=== PATIENT | female | born 1985 | race Two or more races ===

== ENCOUNTER 2020-10-23 14:45 | Inpatient (IN) | payer BC ==
[2020-11-05] MEDS ORDERED: PRENATA CHEWAB1 EACH PO (09:31)
== END 2020-11-07 13:33 | disposition home or self-care (01) | DRG 807 ==
LOC: LDR 11-05 08:32 → SURG-SUITE 11-05 19:22 → LDR 11-12 14:45
PROVIDERS: ADMIT Obstetrics & Gynecology; ATTEND Obstetrics & Gynecology
PROC: 10E0XZZ Delivery of Products of Conception, External Approach (ICD-10-PCS; principal; 2020-11-05)
PROC: 0HQ9XZZ Repair Perineum Skin, External Approach (ICD-10-PCS; 2020-11-05)
PROC: 4A1HXFZ Monitoring of Products of Conception, Cardiac Rhythm, External Approach (ICD-10-PCS; 2020-11-05)
DX: O70.0 First degree perineal laceration during delivery (principal); Z37.0 Single live birth; Z3A.00 Weeks of gestation of pregnancy not specified; Z20.822 Contact with and (suspected) exposure to COVID-19